=== PATIENT | male | born 1940 | race Caucasian/White ===

== ENCOUNTER 2022-02-12 14:54 | Emergency (ER) | payer MEDICARE, OTHER ==
[~2022-02-12] VITALS: Ht 167.6 cm; Wt 66.7 kg
--- NOTE | 2022-02-12 15:12 | NUR ---
Dr Valencia at the bedside for MSE.
[2022-02-12] MEDS ORDERED: diphenhydrAMINE 50 MG/1 ML VIAL ONE (15:27)
[2022-02-12] MEDS ORDERED: methylPREDNISolone SOD SUCC 125 MG/2 ML VIAL ONE (15:27)
[2022-02-12] MEDS ORDERED: FAMOTIDINE. 20 MG/2 ML VIAL IV ONE ×2 (15:28→15:30)
[2022-02-12] MEDS ORDERED: methylPREDNISolone SOD SUCC 125 MG/2 ML VIAL IV ONE (15:30)
[2022-02-12] MEDS ORDERED: diphenhydrAMINE 50 MG/1 ML VIAL IV ONE (15:30)
[2022-02-12 15:49] LABS: HEMATOCRIT 41.1 % (36.7-47.1); MEAN CORPUSCULAR HEMOGLOBIN 29.9 uug (23.8-33.4); PLATELET COUNT (AUTO) 251 K/uL (152-348)
[2022-02-12 16:02] LABS: ALANINE AMINOTRANSFERASE 36 U/L (16-63); ALKALINE PHOSPHATASE 101 U/L (50-136); ASPARTATE AMINOTRANSFERASE 20 U/L (15-37); BILIRUBIN,DIRECT 0.1 mg/dL (0.0-0.2); BILIRUBIN,TOTAL 0.4 mg/dL (0.2-1.0); CARBON DIOXIDE 26 mmol/L (21-32); CHLORIDE 106 mmol/L (98-107); CREATININE 1.7 mg/dL (0.6-1.3); GLUCOSE 109 mg/dL (74-106); POTASSIUM 4.2 mmol/L (3.5-5.1); TOTAL PROTEIN, SERUM 6.2 g/dL (6.4-8.2); UREA NITROGEN, BLOOD 22 mg/dL (7-18)
[2022-02-12] MEDS ORDERED: IV NORMAL SALINE 500 ML BAG IV ONE (17:00)
[2022-02-12] MEDS ORDERED: PRED20TA PO (17:34)
[2022-02-12] MEDS ORDERED: FAMO40TA71 PO (17:34)
[2022-02-12] MEDS ORDERED: DIPH-588 PO (17:34)
--- NOTE | 2022-02-12 17:55 | NUR ---
Pt states feeling better, redness and swelling decreased.
[2022-02-12 19:28] VITALS: BP 115/60
--- NOTE | 2022-02-12 19:28 | NUR ---
Patient discharged to home in stable condition. Written and verbal after care instructions given. Patient verbalizes understanding of instructions. Stressed follow up or return to ER for worsening s/s. pt ambulated with steady gait. denies pain. no SOB. no chest pain. AOx4
== END 2022-02-12 19:32 | disposition home or self-care (01) ==
LOC: ER 14:54
DX: T78.40XA Allergy, unspecified, initial encounter (principal); F17.210 Nicotine dependence, cigarettes, uncomplicated; Z88.8 Allergy status to other drugs, medicaments and biological substances; Z91.013 Allergy to seafood; Z79.899 Other long term (current) drug therapy; Y92.89 Other specified places as the place of occurrence of the external cause
CPT/HCPCS: 36415; 80048; 80076; 85025; 96374; 96375; 99284; J1200; J2930; J3490; J7040; A4663